=== PATIENT | female | born 1940 | race Caucasian/White ===

== ENCOUNTER 2017-07-11 06:45 | Outpatient (CLI) | payer MEDICARE, BC ==
[~2017-07-11] VITALS: Ht 162.7 cm; Wt 63.6 kg
[2017-07-11] VITALS (11 sets, daily range): BP systolic 137–174; BP diastolic 60–86; PULSE 61–70; TEMP 98.2
[~2017-07-11 06:45] MED LIST: FISH OIL 1000MG1 CAP PO; IBU400 MG PO; NATURAL E400 IU PO; NEURONTIN300 MG/CAP PO; NORCO 325 MG-51 TAB PO; PROBIOTIC FORMU1 CAP PO; RESTORIL30 MG PO; TOPROL XL 50MG50 MG PO; TUMS500 MG PO; TYLENOL PM EXTR1 TA1 PO
[2017-07-11] MEDS ORDERED: ARIMIDEX1 MG PO (07:15)
[2017-07-11] MEDS ORDERED: NORVASC 5MG5 MG/TAB PO (07:16)
[2017-07-11 07:44] LABS: MEAN CELL VOLUME 90 fl (80.0-100.0); MEAN CORPUSCULAR HGB CONC 34 g/dl (33.0-37.0); MEAN PLATELET VOLUME 9.3 fl (7.4-10.4); PLATELET COUNT 248 K/mm3 (130-400); RED BLOOD COUNT 3.69 M/mm3 (4.10-5.30); REDCELL DISTRIBUTION WIDTH-CV 12.3 % (11.5-14.5); WHITE BLOOD COUNT 4.8 K/mm3 (4.8-10.8)
[2017-07-11 07:45] LABS: HEMATOCRIT 33.1 % (37.0-47.0); HEMOGLOBIN 11.2 g/dl (12.5-16.0); MEAN CORPUSCULAR HEMOGLOBIN 30 pg (27.0-31.0)
[2017-07-11 07:50] LABS: PROTHROMBIN TIME 10.6 SECONDS (9.7-12.8)
[2017-07-11 08:02] LABS: CALCIUM 9.6 mg/dL (8.4-10.2); CREATININE, serum 1.04 mg/dL (0.52-1.25); POTASSIUM 4.6 mmol/L (3.4-5.0)
[2017-07-11] MEDS ORDERED: ASPIRIN 81M81 MG/TA2 PO (10:05)
== END 2017-07-11 11:24 | disposition home or self-care (01) ==
LOC: COL.RAD 06:45
PROVIDERS: Internal Medicine Cardiovascular Disease
DX: I08.1 Rheumatic disorders of both mitral and tricuspid valves (principal); Q21.1 Atrial septal defect; Z98.890 Other specified postprocedural states
CPT/HCPCS: G9654; J1644; J2704

== ENCOUNTER → 2018-08-23 | Outpatient (CLI) | payer MEDICARE, BC ==
[~2018-08-23] MED LIST changes: +ARIMIDEX1 MG PO; +ASPIRIN 81M81 MG/TA2 PO; +NORVASC 5MG5 MG/TAB PO
== END ==
LOC: MC.RAD 10:00
DX: Z12.31 Encounter for screening mammogram for malignant neoplasm of breast (principal); C50.412 Malignant neoplasm of upper-outer quadrant of left female breast; Z98.890 Other specified postprocedural states

== ENCOUNTER → 2019-08-24 | Outpatient (CLI) | payer MEDICARE, BC | LOC: MC.RAD 13:21 | DX: Z12.31 Encounter for screening mammogram for malignant neoplasm of breast (principal); Z85.3 Personal history of malignant neoplasm of breast; Z98.890 Other specified postprocedural states ==

== ENCOUNTER → 2020-09-24 | Outpatient (CLI) | payer MEDICARE, BC | LOC: MC.RAD 08-25 13:30 | DX: Z12.31 Encounter for screening mammogram for malignant neoplasm of breast (principal); Z98.890 Other specified postprocedural states; Z85.3 Personal history of malignant neoplasm of breast ==

== ENCOUNTER → 2021-11-16 | Outpatient (CLI) | payer MEDICARE, BC | LOC: MC.RAD 07:46 | DX: Z12.31 Encounter for screening mammogram for malignant neoplasm of breast (principal); Z85.3 Personal history of malignant neoplasm of breast; Z90.12 Acquired absence of left breast and nipple ==

== ENCOUNTER → 2022-12-02 | Outpatient (CLI) | payer MEDICARE, BC | LOC: MC.RAD 10:34 | DX: Z12.31 Encounter for screening mammogram for malignant neoplasm of breast (principal); Z85.3 Personal history of malignant neoplasm of breast; Z98.890 Other specified postprocedural states; Z92.3 Personal history of irradiation ==